=== PATIENT | female | born 1985 | race African-American/Black ===

== ENCOUNTER 2024-12-05 08:05 | Emergency (ER) | payer OTHER ==
[2024-12-05 08:28] VITALS: BP 110/75; PULSE 84; RESP 18; TEMP 99.1; BMI 31.2
[2024-12-05] MEDS ORDERED: ACETAMINOPHEN 325 MG TABLET (FP) ONE (09:35)
[2024-12-05] MEDS: ACETAMINOPHEN 500 MG TABLET (FP) PO ONE (09:39)
== END 2024-12-05 09:52 | disposition home or self-care (01) ==
LOC: JERFT 08:05
DX: R10.31 Right lower quadrant pain (principal); G89.29 Other chronic pain; B34.9 Viral infection, unspecified; R05.9 Cough, unspecified; R09.81 Nasal congestion; R07.0 Pain in throat
CPT/HCPCS: 71046-TC-FY; 99283-25